=== PATIENT | female | born 1995 | race Two or more races ===

== ENCOUNTER 2023-06-30 12:10 | Observation (INO) | payer OTHER, SELFPAY ==
[2023-06-30 12:17] VITALS: BP 114/75; BMI 25.4
[2023-06-30] MEDS: LR 1000 IV (12:45)
[2023-06-30] MEDS: BRETHINE 250 MCG SC (13:11)
== END 2023-06-30 15:02 | disposition home or self-care (01) ==
LOC: LDRP 12:10
PROVIDERS: ADMITTING PHYSICIAN Obstetrics & Gynecology; FAMILY PHYSICIAN Nurse Practitioner Family
DX: O32.8XX0 Maternal care for other malpresentation of fetus, not applicable or unspecified (principal); Z3A.38 38 weeks gestation of pregnancy; G89.29 Other chronic pain; M50.20 Other cervical disc displacement, unspecified cervical region; Z28.310 Unvaccinated for COVID-19; Z98.1 Arthrodesis status
CPT/HCPCS: 36415; 59412; 86850; 86900; 86901; G0378

== ENCOUNTER 2023-07-14 07:07 | Inpatient (IN) | payer OTHER, SELFPAY ==
[2023-07-14 07:24] VITALS: BP 123/89; BMI 25.4
[2023-07-14 07:39] LABS: Hematocrit 32.1 % (37.0-47.0); Hemoglobin 10.8 g/dL (12.0-16.0); Mean Corp Hgb Conc. 33.6 g/dL (33.0-37.0); Mean Corpuscular Hgb 29.3 pg (27.0-31.0); Mean Platelet Volume 11.5 fL (7.4-10.4); Platelet Count 228 10^3/uL (130-400); Red Blood Cell Count 3.69 10^6/uL (4.20-5.40); Red Cell Dist. Width 13.6 % (11.5-14.5); White Blood Cell Count 9.3 10^3/uL (4.8-10.8)
[2023-07-14] MEDS: BICITRA 30 ML PO (08:22)
[2023-07-14] MEDS: LR 1000 IV (08:22)
[2023-07-14] MEDS: ANCEF 10 IV (08:23)
[2023-07-14] MEDS: TYLENOL 1000 MG PO (08:23)
[2023-07-14 09:34] VITALS: BP 119/64; BP 123/89
[2023-07-14 09:45] VITALS: BP 132/76
[2023-07-14] MEDS: MORPHINE SULFATE 2 MG IV (09:49)
[2023-07-14 10:00] VITALS: BP 134/91
[2023-07-14] MEDS: MORPHINE SULFATE 4 MG IV (10:02)
[2023-07-14] MEDS: PERCOCET 5/325 1 TABLET PO (12:45)
[2023-07-14] MEDS: TORADOL 15 MG IV ×2 (17:22→21:58)
[2023-07-15] MEDS: TORADOL 15 MG IV ×2 (04:01→10:23)
[2023-07-15 04:44] LABS: Hematocrit 23.2 % (37.0-47.0); Mean Corp Hgb Conc. 34.5 g/dL (33.0-37.0); Mean Corpuscular Hgb 29.1 pg (27.0-31.0); Mean Corpuscular Volume 84.4 fL (81.0-99.0); Mean Platelet Volume 11.2 fL (7.4-10.4); Platelet Count 191 10^3/uL (130-400); Red Blood Cell Count 2.75 10^6/uL (4.20-5.40); Red Cell Dist. Width 13.7 % (11.5-14.5); White Blood Cell Count 13.8 10^3/uL (4.8-10.8)
--- NOTE | 2023-07-15 08:02 | W.PN.ANS.POP ---
Anesthesia Post Operative
- Anesthesia Post Op Note
Vital Signs Stable-See Nursing Note: Yes
Airway Patent: Yes
Adequate Pain Control: Yes
Change in Mental Status: No
Current Postoperative Nausea & Vomiting: No
Anesthesia Complications: No
General Anesthetic Recall: No
Unplanned Admission: No
Post Op Hydration Adequate: Yes
[2023-07-15] MEDS: TYLENOL 650 MG PO ×2 (16:50→22:46)
[2023-07-15] MEDS: MOTRIN 600 MG PO ×2 (16:51→22:45)
[2023-07-16] MEDS: FEOSOL 325 MG PO (09:17)
--- NOTE | 2023-07-16 10:26 | W.DS.TRANS ---
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
-
Discharge Instructions:
Discharge Diagnosis/Procedures term , delivered; s/p PLTCS; anemia
Instructions:
Stand-Alone Forms: LDRP Delivery
Changes to Home Medications: No
Discharge Medications:
DC Medications w/original date entered in [employer]
ferrous sulfate 325 mg (65 mg iron) tablet (Iron (ferrous sulfate)) 325 mg PO DAILY Supplement 06/30/23
prenat.vits,pierce,twr-yrcv-vlctg 1 tab PO DAILY Supplement 06/30/23
acetaminophen 325 mg tablet 650 mg (2 x 325 mg) PO Q4HPRN PRN mild pain #0 tabs 07/16/23
ibuprofen 600 mg tablet 600 mg PO Q6HPRN PRN cramps #60 tabs 07/16/23
oxycodone 5 mg tablet 5 mg PO Q4H PRN pain #7 tabs 07/16/23
sennosides 8.6 mg-docusate sodium 50 mg tablet (Stool Softener-Stimulant Laxative) 1 tab PO DAILYPRN PRN constipation #0 tabs 07/16/23
Home Medication Changes
Pending Results: No
Total time spent discharging patient (in min): 20
[2023-07-16] MEDS: TYLENOL 650 MG PO (14:18)
[2023-07-16] MEDS: MOTRIN 600 MG PO (14:18)
[2023-07-18 14:20] LABS: Syphilis/T. pallidum Ab Reflex Negative (Negative)
== END 2023-07-16 15:00 | disposition home or self-care (01) | DRG 788 ==
LOC: LDRP 07:07
PROVIDERS: ADMITTING PHYSICIAN Obstetrics & Gynecology
PROC: 10D00Z1 Extraction of Products of Conception, Low, Open Approach (ICD-10-PCS; 2023-07-14)
DX: O32.2XX0 Maternal care for transverse and oblique lie, not applicable or unspecified (principal); O34.211 Maternal care for low transverse scar from previous cesarean delivery; N85.8 Other specified noninflammatory disorders of uterus; Z37.0 Single live birth; O48.0 Post-term pregnancy; Z3A.40 40 weeks gestation of pregnancy; O99.02 Anemia complicating childbirth
CPT/HCPCS: 85027; 86780; 86850; 86900; 86901